=== PATIENT | female | born 1990 | race Caucasian/White ===

== ENCOUNTER 2020-10-09 16:58 | Outpatient (CLI) | payer OTHER, SELFPAY | END 2020-10-09 16:59 | disposition home or self-care (01) | LOC: CHSIMG 17:04 | PROVIDERS: Visit Provider Podiatrist | DX: M20.11 Hallux valgus (acquired), right foot (principal); Z53.8 Procedure and treatment not carried out for other reasons | CPT/HCPCS: 99199 ==

== ENCOUNTER 2020-10-31 16:32 | Outpatient (CLI) | payer OTHER, SELFPAY ==
--- NOTE | ~2020-10-31 | XR_ITS ---
XR foot LT min 3V DATE: 10/31/2020 17:08 INDICATION: Bilateral dorsal foot pain for one year TECHNIQUE: 4 views COMPARISON: None FINDINGS: There is hallux valgus and bunion deformity. There is mild osteoarthritis at the first metatarsophalangeal joint. No fracture, dislocation, periosteal reaction or bone destruction. IMPRESSION: Hallux valgus and bunion deformity Mild osteoarthritis at first metatarsophalangeal joint Reviewed, dictated and finalized at location A.
--- NOTE | ~2020-10-31 | XR_ITS ---
XR foot RT min 3V DATE: 10/31/2020 17:08 INDICATION: Right foot dorsal pain for one year TECHNIQUE: 4 views COMPARISON: None FINDINGS: There is hallux valgus and bunion deformity. Mild osteoarthritis at the first metatarsophalangeal joint. There is no fracture or dislocation, noemi osteal reaction or bone destruction. IMPRESSION: Hallux valgus and bunion deformity Mild osteoarthritis at first metatarsophalangeal joint Reviewed, dictated and finalized at location A.
== END 2020-10-31 16:33 | disposition home or self-care (01) ==
LOC: CHSIMG 16:37
PROVIDERS: Visit Provider Podiatrist
DX: M20.11 Hallux valgus (acquired), right foot (principal)
CPT/HCPCS: 73630

== ENCOUNTER 2021-10-18 11:01 | Emergency (ER) | payer OTHER, SELFPAY ==
[2021-10-18] VITALS (9 sets, daily range): BP systolic 105–139; BP diastolic 68–86; PULSE 70–88; RESP 20; TEMP 36.2; O2SAT 98–100
--- NOTE | ~2021-10-18 | CT_ITS ---
EXAMINATION: CT abdomen pelvis wo con DATE: 10/18/2021 11:58 INDICATION: Mid to lower abdominal pain, nausea and vomiting. TECHNIQUE: Computed tomography (CT) of the abdomen and pelvis was performed without intravenous contr ast. Automated exposure control and iterative reconstruction technique were employed. The dose-length product was 348.58 mGy-cm. COMPARISON: None FINDINGS: Lung bases are clear. Heart size is normal. No pericardial or pleural effusion. Subtle gradient of de pendently layering sludge within the otherwise normal-appearing gallbladder. Liver, spleen, pancreas and bilateral adrenal glands are normal. Kidneys and ureters are normal with no urolithiasis, hydrour eteronephrosis or perinephric/ureteral stranding. Partially decompressed bladder is normal. T-shaped IUD in expected position within the anteverted uterus. Bilateral adnexa are unremarkable. There are c ouple diverticula at the cecum without adjacent inflammatory change to suggest diverticulitis. No bow el obstruction. Multiple elongated peripherally calcified appendicoliths within the long appendix whi ch measures up to 12 mm in diameter with some wall thickening which measures approximately 2-3 mm harlan rounding the distalmost appendicolith which does raise some suspicion for acute appendicitis. There i s some diffuse haziness to the mesenteric fat but without focally more prominent inflammatory strandi ng surrounding the appendix to more specifically suggest acute appendicitis. No bowel obstruction. Sm all amount of likely physiologic free fluid in the pelvis. No free intraperitoneal gas. No pathologic ally enlarged abdominal or pelvic lymphadenopathy. Bones are unremarkable. IMPRESSION: 1. Mild wall thickening along the long appendix which contains several calcified appendicoliths, whic h is suspicious but not definitive for acute appendicitis. 2. IUD in expected position. Reviewed, dictated and finalized at location B. IMPRESSION: 1. Mild wall thickening along the long appendix which contains several calcifie d appendicoliths, which is suspicious but not definitive for acute appendicitis . 2. IUD in expected position.
--- NOTE | 2021-10-18 11:20 | ECG_ITS ---
Measurements Intervals [place] Rate: 59 P: 49 NE: 119 QRS: 92 QRSD: 96 T: 75 QT: 431 QTc: 429 Interpretive Statements SINUS BRADYCARDIA WITH SHORT NE INTERVAL BORDERLINE RIGHT AXIS DEVIATION [QRS AXIS > 90] BORDERLINE ECG NO PREVIOUS ECG AVAILABLE FOR COMPARISON Electronically Signed On 10-18-2021 17:37:20 CDT by Mamadou Bustos M.D.
[2021-10-18 11:30] LABS: Add Urine Microscopic? YES; Appearance Urine Clear (Clear); Bilirubin Urine Negative (Negative); Blood Urine Negative (Negative); Color Urine Light Yellow (Yellow); Glucose Urine UA Negative (Negative); Ketones Urine Negative (Negative); Leukocyte Esterase Ur 1+ (Negative); Nitrate Urine Negative (Negative); Protein Urine Negative (Negative); Specific Grav Ur 1.025 (1.010-1.020); Urobilinogen Urine 0.2 mg/dL (0.2-1.0)
[2021-10-18 11:36] LABS: Bacteria Urine 2+ /hpf; Pregnancy On Board Control Positive; RBC Urine None seen /hpf (0-2); Squamous Epithelial Cell Urine Moderate /hpf (Few); Urine Pregnancy Test Negative
[2021-10-18] MEDS: SODIUM CHLORIDE 0.9% IV 1,000 ML 999 ML IV CONT (11:37)
[2021-10-18] MEDS: ONDANSETRON INJ 4 MG/2 ML VIAL IV PUSH (11:38)
[2021-10-18] MEDS: KETOROLAC 30 MG/ML VIAL (*BKC) IV PUSH (11:38)
[2021-10-18 11:39] LABS: Basophils Absolute Auto 0.05 K/mm3 (0.00-0.10); Basophils Percent Auto 0.3 % (0.0-1.0); Eosinophils Absolute Auto 0.15 K/mm3 (0.02-0.50); Hematocrit 38.7 % (35.0-49.0); Hemoglobin 13.4 g/dL (12.0-15.0); Immature Granulocyte Absolute 0.06 K/mm3 (0.00-0.00); Immature Granulocyte Percent A 0.4 % (0.0-0.0); Lymphocytes Absolute Auto 1.56 K/mm3 (1.10-4.50); Lymphocytes Percent Auto 10.5 % (18.0-42.0); Mean Corpuscular HGB Conc 34.6 g/dL (32.0-36.0); Mean Corpuscular Hemoglobin 31.6 pg (27.0-31.0); Mean Corpuscular Volume 91.3 fL (78.0-102.0); Mean Platelet Volume 9.9 fl (9.2-11.8); Monocytes Percent Auto 5.4 % (2.0-11.0); Neutrophils Absolute Auto 12.2 K/mm3 (1.7-7.2); Neutrophils Percent Auto 82.4 % (50.0-70.0); Platelet Count Result 225 K/mm3 (150-420); Red Blood Count 4.24 M/mm3 (4.20-5.40); Red Cell Distribution Width 12.2 % (11.6-14.4); White Blood Count 14.8 K/mm3 (4.8-10.8)
--- NOTE | 2021-10-18 11:51 | ED.ABDPAIN ---
HPI - Abdominal Pain General Chief Complaint: Abdominal Pain Stated Complaint: ABDOMINAL PAIN Source: patient Mode of arrival: ambulatory Limitations: no limitations History of Present Illness HPI narrative: this is a 30-year-old female presents with some pain periumbilical radiating into her lower abdomen mid suprapubic and right and lower quadrants with no flank pain no fever chills pain started earlier this morning at around 6 or 7 this morning patient rates her pain about a 6/10 with no hematuria does have some nausea with no vomiting no chest pain or shortness of breath. MD elicited complaint: abdominal pain Pertinent past history: none Onset (ago): hour(s) Pain Consistency: constant Location: periumbilical Severity: moderate Pain scale (0-10): 6 Radiation: suprapubic, L flank and R flank Associated symptoms: nausea and dysuria Related Data Home Medications Medication Instructions Recorded Confirmed naproxen 375 mg tablet 1 tablet PO BID 10/18/21 10/18/21 sumatriptan succinate 25 mg tablet 1 tablet PO DAILY PRN Migraine 10/18/21 10/18/21 Headache Allergies Allergy/AdvReac Type Severity Reaction Status Date / Time No Known Allergies Allergy Verified 10/18/21 11:20 Review of Systems Review of Systems: All systems reviewed & are unremarkable except as noted in HPI and below PMFSH Past Medical History Medical History (Updated 10/18/21 @ 12:41 by Da Alexis MD) Patient denies medical problems Exam Const: General: healthy appearing, no acute distress and alert Nutritional Appearance: well nourished Limitations: no limitations HENMT: Head: normal to inspection Eyes: Conjunctivae: conjunctivae normal Direct Ophthalmoscopy: no photophobia Neck: Neck: normal visual inspection, no lymphadenopathy and no meningeal signs Chest: Chest palpation & inspection: normal inspection of the chest Resp: Effort & Inspection: normal respiratory effort Auscultation: clear to auscultation bilaterally Cardio: Rate: regular rate Rhythm: regular rhythm GI: GI Palp: Yes Soft to palpation and Yes Tenderness to palpation present (GI) ( lower abdomen) Urinary Catheter: Urinary Catheter: patent and draining Skin: General skin exam: normal color Wounds: no wounds Neuro: General: patient oriented x3 and moves all extremities Cranial nerves: Yes Nystagmus not present Speech: normal speech Gait exam (Neuro): Normal gait present Extrem: General: normal to inspection Psych: Mental Status: mental status grossly normal Course Course Emergency Course: patient received 30mg IV Toradol as well as IV fluids and CT scan and blood work as well as urinalysis reviewed with patient and family. CT scan reviewed with patient and family which shows acute appendicitis, spoke with some [facility] surgeon which will be accepting the patient. Patient received a dose of 4mg of morphine and a dose of 3.75 IV Zosyn. Talk to surgery and they are able to get the patient in promptly and patient stable for transfer by private vehicle. Vital Signs Vital signs: Vital Signs Temperature 36.2 C L 10/18/21 11:21 Pulse Rate 72 10/18/21 11:21 Respiratory Rate 20 10/18/21 11:21 Blood Pressure 132/86 10/18/21 11:21 Pulse Oximetry 100 10/18/21 11:21 Oxygen Delivery Room Air 10/18/21 11:21 Temperature 36.2 C L 10/18/21 11:21 Pulse Rate 72 10/18/21 11:21 Respiratory Rate 20 10/18/21 11:21 Blood Pressure 132/86 10/18/21 11:21 Pulse Oximetry 100 10/18/21 11:21 Oxygen Delivery Room Air 10/18/21 11:21 Transfer Transfered to: [facility] Transportation: Other ( Private vehicle) MDM - Abdominal Pain Lab Data Result diagrams: 10/18/21 11:35 10/18/21 11:35 Labs: Lab Results 10/18/21 10/18/21 10/18/21 Range/Units 11:20 11:35 11:35 WBC 14.8 H (4.8-10.8) K/mm3 RBC 4.24 (4.20-5.40) M/mm3 Hgb 13.4 (12.0-15.0) g/dL Hct 38.7 (35.0-49.0
[2021-10-18 12:00] LABS: Alanine Aminotransferase 20 U/L (14-59); Albumin Level 4.3 g/dL (3.4-5.0); Alkaline Phosphatase 73 U/L (46-116); Anion Gap 8 mmol/L (8-16); Aspartate Amino Transferase 20 U/L (15-37); Blood Urea Nitrogen 12 mg/dL (7-18); Calcium 9.5 mg/dL (8.5-10.1); Carbon Dioxide 26 mmol/L (21-32); Chloride 100 mmol/L (98-108); Estimated CRCL calculation 83 ml/min; Estimated Glomerular Filt Rate > 60; Glucose 94 mg/dL (70-99); Lipase 56 U/L (73-393); Osmolality Calculated 277 mOsm/kg (285-295); Potassium 3.6 mmol/L (3.5-5.1); Sodium 134 mmol/L (136-145); Total Protein 7.5 g/dL (6.4-8.2); Troponin I 4.8 ng/L (0.00-60.4)
[2021-10-18 12:02] LABS: CRP < 0.2 mg/dL (0.0-0.9)
[2021-10-18 12:22] LABS: Lactic Acid Reflex 0.9 mmol/L (0.4-2.0)
[2021-10-18] MEDS: MORPHINE SULFATE (*CRX) 4 MG/ML INJ IV PUSH (12:33)
--- NOTE | 2021-10-18 13:11 | PC.NURSE ---
pt refused to go to [facility] pt requesting now to go to [facility] notified
[2021-10-18 13:13] LABS: Partial Thromboplastin Time 29.2 SEC (23.90-30.70); Prothrombin Time 10.5 Seconds (9.64-11.0)
[2021-10-18 13:33] LABS: SARS-CoV-2 Ag Negative (Negative)
--- NOTE | 2021-10-18 15:26 | PC.NURSE ---
[address] [facility] TRANSFER LINE CALLED 1500 RETURNED CALL AND THEY HAVE NO BED IN THEIR UMBRELLA TO TAKE PT 1520 PT NOW WANTS TO CALL [facility] CALL PLACED AND WAITING FOR CALL BACK
--- NOTE | 2021-10-18 16:06 | PC.NURSE ---
3517 [facility] CALLED BACK AND ACCEPTED PT DR CASTRO SPOKE WITH DR ACHARYA WE ARE AWAITING ROOM ASSIGNMENT
== END 2021-10-18 16:28 | disposition short-term general hospital (02) ==
PROVIDERS: Emergency Provider Emergency Medicine
DX: K35.80 Unspecified acute appendicitis (principal); Z20.822 Contact with and (suspected) exposure to COVID-19
CPT/HCPCS: 36415; 74176; 80053; 81001; 81025; 83605; 83690; 84484; 85025; 85610; 85730; 86140; 87426; 93005; 96361; 96365; 96375; 99285; C9803; J1885; J2270; J2405; J2543; J7030

== ENCOUNTER 2023-11-17 14:41 | Outpatient (CLI) | payer OTHER, SELFPAY ==
--- NOTE | ~2023-11-17 | US_ITS ---
US pelvic complete w TV Ordering provider: Rocio Wright MD History: . N93.9 - Abnormal uterine and vaginal bleeding, unspecified . Comparison: None. Technique: Transabdominal and endovaginal ultrasound of the pelvis (Doppler ultrasound interrogation techniques used as needed for this exam.) FINDINGS: CERVIX: Normal. UTERUS: Measures 8x 4.7x 3.1m in length which is within normal limits and is anteverted. No myometri al masses. ENDOMETRIUM: Normal in thickness measuring 4.3m. IUD is seen in the endometrial cavity. No endometria l masses, cysts or fluid. CUL DE SAC: Minimal free fluid. RIGHT OVARY: Normal in size measuring 3.8x2.2x 2.1 cm. Cystic areas seen in the mid ovary with periph eral increased vascularity with possible minimal decidual reaction which may indicate ectopic pregnan cy. Clinical correlation and lab correlation advised. LEFT OVARY: Normal in size measuring 2.5x2.1x1.9 cm.Normal echotexture Doppler vascular flow present. ADNEXA: Normal. No mass. IMPRESSION: Possible right ectopic . Clinical and lab correlation advised. Otherwise, normal pelvic ultr asound. the nurse of Dr. Rocio Wright was notified with the result of the patient at 3:32 PM on November 17, 2023 Reviewed, dictated and finalized at location A. IMPRESSION: Possible right ectopic . Clinical and lab correlation advised. Otherwi se, normal pelvic ultrasound. the nurse of Dr. Rocio Wright was notified with the result of the patient at 3:32 PM on November 17, 2023
== END 2023-11-17 14:42 | disposition home or self-care (01) ==
PROVIDERS: Visit Provider Obstetrics & Gynecology
DX: Z30.431 Encounter for routine checking of intrauterine contraceptive device (principal); R10.2 Pelvic and perineal pain; N93.9 Abnormal uterine and vaginal bleeding, unspecified
CPT/HCPCS: 36415; 76830; 76856; 84702

== ENCOUNTER 2023-11-18 09:03 | Outpatient (CLI) | payer OTHER, SELFPAY ==
[2023-11-18 09:23] LABS: Basophils Absolute Auto 0.06 K/mm3 (0.00-0.10); Basophils Percent Auto 0.7 % (0.0-1.0); Eosinophils Absolute Auto 0.42 K/mm3 (0.02-0.50); Eosinophils Percent Auto 5.1 % (1.0-6.0); Hematocrit 40.6 % (35.0-49.0); Hemoglobin 13.7 g/dL (12.0-15.0); Immature Granulocyte Absolute 0.02 K/mm3 (0.00-0.00); Immature Granulocyte Percent A 0.2 % (0.0-0.0); Lymphocytes Absolute Auto 1.56 K/mm3 (1.10-4.50); Lymphocytes Percent Auto 18.8 % (18.0-42.0); Mean Corpuscular HGB Conc 33.7 g/dL (32-36); Mean Corpuscular Hemoglobin 31.2 pg (27.0-31.0); Mean Corpuscular Volume 92.5 fL (78.0-102.0); Mean Platelet Volume 9.6 fl (9.2-11.8); Monocytes Percent Auto 7.2 % (2.0-11.0); Neutrophils Absolute Auto 5.65 K/mm3 (1.70-7.20); Platelet Count Result 221 K/mm3 (150-420); Red Blood Count 4.39 M/mm3 (4.20-5.40); White Blood Count 8.3 K/mm3 (4.8-10.8)
[2023-11-18 10:03] LABS: Alanine Aminotransferase 17 U/L (14-59); Albumin Level 4.1 g/dL (3.4-5.0); Alkaline Phosphatase 75 U/L (46-116); Anion Gap 10 mmol/L (4-12); Aspartate Amino Transferase 15 U/L (15-37); Bilirubin,Total 1.4 mg/dL (0.00-1.00); Blood Urea Nitrogen 7 mg/dL (7-18); Calcium 9.2 mg/dL (8.5-10.1); Carbon Dioxide 27 mmol/L (21-32); Chloride 99 mmol/L (98-108); Estimated Glomerular Filt Rate > 60; Glucose 83 mg/dL (70-99); Osmolality Calculated 279 mOsm/kg (285-295); Sodium 136 mmol/L (136-145); Total Protein 7.3 g/dL (6.4-8.2)
== END 2023-11-18 09:04 | disposition home or self-care (01) ==
LOC: CHSLAB 09:06
PROVIDERS: PCP Obstetrics & Gynecology; Visit Provider Obstetrics & Gynecology
DX: O00.90 Unspecified ectopic pregnancy without intrauterine pregnancy (principal)
CPT/HCPCS: 36415; 80053; 84702; 85025; 86850; 86900; 86901

== ENCOUNTER 2023-11-21 15:48 | Outpatient (CLI) | payer OTHER, SELFPAY | END 2023-11-21 15:49 | disposition home or self-care (01) | LOC: CHSLAB 15:49 | PROVIDERS: PCP Obstetrics & Gynecology; Visit Provider Obstetrics & Gynecology | DX: O00.90 Unspecified ectopic pregnancy without intrauterine pregnancy (principal) | CPT/HCPCS: 36415; 84702 ==

== ENCOUNTER 2023-11-24 13:53 | Outpatient (CLI) | payer OTHER, SELFPAY ==
[2023-11-24 14:08] LABS: Hematocrit 39.5 % (35.0-49.0); Hemoglobin 13.3 g/dL (12.0-15.0); Mean Corpuscular HGB Conc 33.7 g/dL (32-36); Mean Corpuscular Hemoglobin 31.3 pg (27.0-31.0); Mean Corpuscular Volume 92.9 fL (78.0-102.0); Mean Platelet Volume 9.3 fl (9.2-11.8); Platelet Count Result 194 K/mm3 (150-420); Red Blood Count 4.25 M/mm3 (4.20-5.40); Red Cell Distribution Width 13.8 % (11.6-14.4); White Blood Count 5.7 K/mm3 (4.8-10.8)
[2023-11-24 15:04] LABS: Alanine Aminotransferase 32 U/L (14-59); Albumin Level 3.9 g/dL (3.4-5.0); Alkaline Phosphatase 67 U/L (46-116); Anion Gap 8 mmol/L (4-12); Aspartate Amino Transferase 17 U/L (15-37); Bilirubin,Total 2.1 mg/dL (0.00-1.00); Blood Urea Nitrogen 11 mg/dL (7-18); Carbon Dioxide 28 mmol/L (21-32); Chloride 102 mmol/L (98-108); Estimated Glomerular Filt Rate > 60; Glucose 110 mg/dL (70-99); Osmolality Calculated 286 mOsm/kg (285-295); Potassium 3.8 mmol/L (3.5-5.1); Sodium 138 mmol/L (136-145); Total Protein 6.9 g/dL (6.4-8.2)
== END 2023-11-24 13:54 | disposition home or self-care (01) ==
LOC: CHSLAB 13:58
PROVIDERS: Visit Provider Obstetrics & Gynecology
DX: O00.90 Unspecified ectopic pregnancy without intrauterine pregnancy (principal)
CPT/HCPCS: 36415; 80053; 84702; 85027

== ENCOUNTER 2023-12-01 12:42 | Outpatient (CLI) | payer OTHER, SELFPAY | END 2023-12-01 12:43 | disposition home or self-care (01) | LOC: CHSLAB 12:47 | PROVIDERS: Visit Provider Obstetrics & Gynecology | DX: O00.90 Unspecified ectopic pregnancy without intrauterine pregnancy (principal) | CPT/HCPCS: 36415; 84702 ==

== ENCOUNTER 2023-12-03 15:07 | Outpatient (CLI) | payer OTHER, SELFPAY ==
--- NOTE | ~2023-12-03 | US_ITS ---
EXAMINATION: US pelvic complete w TV DATE: 12/03/2023 15:41 INDICATION: Right tubal TECHNIQUE: Multiple transabdominal and endovaginal sonographic images of the pelvis were obtained. COMPARISON: None. FINDINGS: The uterus measures 10.5 x 4.6 x 3.8 cm. Linear echogenic and shadowing T-shaped IUD in expected posi tion within the endometrial canal. The IUD obscures the margins of the endometrial complex which does not appear thickened. No evident intrauterine gestational sac. The right ovary measures 3.7 x 3.4 x 3.4 cm. The left ovary measures 4.2 x 2.9 x 3.2 cm. Simple appearing anechoic cysts/follicles in both ovaries measuring 2.7 cm on the left and 2.1 cm on the right. Along side but appearing separate from the right ovary is a targetoid-appearing complex structure measuring 2.1 x 1.7 x 1.6 cm which is thi n peripherally hyperechoic rim with increased vascular flow on color Doppler surrounding a 9 mm mixed anechoic and hypoechoic complex cystic space with the intervening thicker hypoechoic region which is suspicious for a tubal ectopic . Normal vascular flow with arterial waveforms identified at both ovaries. There is no free fluid in the pelvis. IMPRESSION: 1. 2.1 cm complex centrally cystic lesion along side the right ovary suspicious for tubal ectopic pre gnancy. 2. IUD in expected position within the endometrial canal with no evident intrauterine gestational sac . Reviewed, dictated and finalized at location A. IMPRESSION: 1. 2.1 cm complex centrally cystic lesion along side the right ovary suspicious for tubal ectopic . 2. IUD in expected position within the endometrial canal with no evident intrau terine gestational sac.
== END 2023-12-03 15:08 | disposition home or self-care (01) ==
PROVIDERS: PCP Obstetrics & Gynecology; Visit Provider Obstetrics & Gynecology
DX: O00.101 Right tubal pregnancy without intrauterine pregnancy (principal); Z97.5 Presence of (intrauterine) contraceptive device
CPT/HCPCS: 76830; 76856

== ENCOUNTER 2023-12-08 13:15 | Outpatient (CLI) | payer OTHER, SELFPAY ==
[2023-12-08 13:31] LABS: Hematocrit 42.4 % (35.0-49.0); Hemoglobin 14.3 g/dL (12.0-15.0); Mean Corpuscular HGB Conc 33.7 g/dL (32-36); Mean Corpuscular Hemoglobin 31.8 pg (27.0-31.0); Mean Corpuscular Volume 94.2 fL (78.0-102.0); Mean Platelet Volume 9.3 fl (9.2-11.8); Platelet Count Result 319 K/mm3 (150-420); Red Cell Distribution Width 13.7 % (11.6-14.4)
[2023-12-08 14:10] LABS: Alanine Aminotransferase 16 U/L (14-59); Alkaline Phosphatase 77 U/L (46-116); Anion Gap 9 mmol/L (4-12); Aspartate Amino Transferase 16 U/L (15-37); Bilirubin,Total 2.1 mg/dL (0.00-1.00); Blood Urea Nitrogen 9 mg/dL (7-18); Calcium 9.2 mg/dL (8.5-10.1); Carbon Dioxide 27 mmol/L (21-32); Chloride 102 mmol/L (98-108); Estimated Glomerular Filt Rate > 60; Glucose 110 mg/dL (70-99); Osmolality Calculated 285 mOsm/kg (285-295); Potassium 4.1 mmol/L (3.5-5.1); Sodium 138 mmol/L (136-145)
== END 2023-12-08 13:16 | disposition home or self-care (01) ==
LOC: CHSLAB 13:18
PROVIDERS: Visit Provider Obstetrics & Gynecology
DX: O00.90 Unspecified ectopic pregnancy without intrauterine pregnancy (principal)
CPT/HCPCS: 36415; 80053; 84702; 85027

== ENCOUNTER 2023-12-15 13:42 | Outpatient (CLI) | payer OTHER, SELFPAY | END 2023-12-15 13:43 | disposition home or self-care (01) | PROVIDERS: Visit Provider Obstetrics & Gynecology | DX: O00.101 Right tubal pregnancy without intrauterine pregnancy (principal) | CPT/HCPCS: 36415; 84702 ==

== ENCOUNTER 2024-07-26 18:53 | Outpatient (CLI) | payer OTHER, SELFPAY ==
--- OUTSIDE RECORDS SUMMARY | 2024-07-26 19:32 | XMS_ITS | Referral Summary ---
Author Organization [facility] Address [address] [place] [address] Care Team Providers Care Surgical [employer]ps Fabricator Name Role Phone Amelia Wyman MD Unavailable Amanda Krishna MD Primary Care Provider Encounters Date Type Department Care Team Description 05/06/2024 Orders Only [facility] [address] [place] [address] Unknown, Notinfile from Last 3 Months Allergies No known active allergies Medications SUMAtriptan (IMITREX) 25 mg tabletIndicatio ns:Migraine without aura and without status migrainosus, not intractable Take 1 tablet (25 mg total) by mouth once as needed for migraine for up to 1 dose 9 tablet 3 9 Active docusate sodium (COLACE) 100 mg capsule Take 1 capsule (100 mg total) by mouth 2 (two) times a day as needed for constipation 60 capsule 9 Active levonorgestrel (MIRENA) IUD 9 Active tiZANidine (ZANAFLEX) 4 mg tablet Take 1 tablet (4 mg total) by mouth nightly at bedtime. 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 Continue current treatment regimen. imitrex renewed Skin papules, generalized 05/15/2017 Assessment & Plan (05/15/2017 8:11 AM FORMING PROCESS LINE WORKER): Small skin tags, papules - reassurance given. No intervention needed Resolved Problems Problem Noted Date Diagnosed Date Resolved Date Depression 10/02/2013 05/15/2017 Overview (08/21/2016): DEPRESSIVE DISORDER NEC Immunizations Immunization Administration Dates Next Due Influenza, Quadrivalent, Spl it, Intramuscular 12/25/2015 Influenza, Unspecified 05/14/2017(Deferred: [place] Refused) Social History Tobacco Use Types Packs/Day Years Used Date Smoking Tobacco: Former Cigarettes Q uit: 2017 Smokeless Tobacco: Never Tobacco Cessation:Counseling Given: Not Answered Comments:Smoking History Packs/day: 1 Packs Alcohol Use Standard Drinks/Week Comments Yes 0 (1 standard drink = 0.6 oz pur e alcohol) PHQ-2 Answer Date Recorded PHQ-2 Score 0 01/08/2019 Comments Unknown Sex and Gender Information Value Date Recorded Sex Assigned at Not on file Legal Sex Female 7:06 PM FORMING PROCESS LINE WORKER Gender Identity Not on file Sexual Orientation Straight 05/26/2019 1: 44 PM FORMING PROCESS LINE WORKER Last Filed Vital Signs Vital Sign Reading Time Taken Comments Blood Pressure 102/60 04/21/2024 3:09 PM FORMING PROCESS LINE WORKER Pulse 67 04/21/2024 3:09 PM FORMING PROCESS LINE WORKER Temperature 36.9 C (98.4 F) 04/21/2024 3:09 PM FORMING PROCESS LINE WORKER Respiratory Rate 18 04/21/2024 3:09 PM FORMING PROCESS LINE WORKER Oxygen Saturation 99% 04/21/2024 3:09 PM FORMING PROCESS LINE WORKER Inhaled Oxygen Concentration - - Weight 72.6 kg (160 lb) 04/21/2024 3:09 PM FORMING PROCESS LINE WORKER Height 175.3 cm (5' 9 ) 04/21/2024 3:09 PM FORMING PROCESS LINE WORKER Body Mass Index 23.63 04/21/2024 3:09 PM FORMING PROCESS LINE WORKER Plan of Treatment Not on file Procedures Procedure Name Priority Date/Time Associated Diagnosis Comments SURGICAL PATHOLOGY Routine 05/06/2024 5: 00 PM FORMING PROCESS LINE WORKER from Last 3 Months Results * Surgical pathology (05/06/2024 5:00 PM FORMING PROCESS LINE WORKER) Skin, shave biopsy 05/06/2024 5:00 PM FORMING PROCESS LINE WORKER 05/13/2024 9:01 AM FORMING PROCESS LINE WORKER Narrative 05/14/2024 1:12 PM FORMING PROCESS LINE WORKER EPIC results best viewed via link to PDF [facility] [address] [place] [address], [address], [place] [address] [email or web address] Note to Patients: This report may contain a detailed description of human tissue sent by a health care provider to the laboratory for pathologic evaluation. The content of this report is essential for diagnosis and may provide important critical findings. This information may be unfamiliar to patients to review without a medical professional present. It is advised that the patient review this report in the presence of a health care provider who can answer questions and explain the details. FINAL REPORT Patient Information: PATIENT NAME: NALLELY SANDRA SEX: F : 1990 (Age: 33) Specimen Information: COLLECTED: 05/06/2024 RECEIVED: 05/13/2024 REPORTED: 05/14/2024 Submitting Physician Information: Jackie Hauser, [facility], [address] [place], [place] [id number], DERMATOPATHOLOGY REPORT RESULTS DIAGNOSIS: SKIN, SUPERIOR THORACIC SPINE, SHAVE BIOPSY: DERMAL MELANOCYTIC NEVUS exr/ajrr By this signature, I attest that the above diagnosis is based upon my personal examination of the slides(and/or other material indicated in the diagnosis). Puma Donald M.D. Report Electronically Reviewed and Signed Out By Puma Donald M.D. 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 (D22.9) GROSS DESCRIPTION: Received in a formalin-containing bottle is a superficial fragment of brown,dome-shaped and hair-bearing skin measuring 0.9 by 0.8 by 0.2 cm. The surgical margin is inked blue. The specimen is sectioned into 3 pieces and submitted entirely in a single cassette. Due to shrinkage, measurements may be different than those at time of procedure. cr/anc ICD-9 A; ZSD.808 Clerical Data A; 83487 The characteristics of special, immunohistochemical, and immunofluorescence stains and in-situ hybridization tests performed by the [facility] were deemed acceptable in ongoing quality associate measures and in compliance with regulations drawn from the Clinical Laboratory Improvement Act fj3699 (CLIA '88). Control reactions for all stains performed were deemed adequate and appropriate by a pathologist prior to evaluation of patient tissue. Some diagnoses were rendered with the assistance of laboratory-developed tests utilizing analyte-specific reagents; the performance characteristic of these tests were determined by [facility] and are not cleared or approved by the [place] Food an Drug administration. Laboratory developed test may only be performed in a facility that is certified by the [facility] as a high-complexity laboratory under CLIA '88. These tests are used for clinical purposes and are not investigational. us Notinfile Unknown LAB PATHOLOGY ORDERABLES Final Result from Last 3 Months Insurance [facility] [employer]O Address: [address] [address] [place] [address] [facility] [employer] Address: [address] [address] [place] [address] Care Teams Surgical Forceps Fabricator Relationship Specialty Start Date End Date Amanda Krishna MD [address] [place] [address] PCP - General Family Medicine 04/21/24 Amelia Wyman MD [facility] 06/24/18
--- OUTSIDE RECORDS SUMMARY | 2024-07-26 19:32 | XMS_ITS | Data Portability ---
Author Organization [place] - [facility], Crystal Guzman Address [address] [place] [id number] Assessment Encounter Date Assessment Date Assessment LastModified by Organization Details LastModified Time 03/24/2024 03/24/2024 Assessment and Plan Assessment: patient tolerated session well Plan: My area of focus will be on what the patient presented with. Recommendatio n: 4 of 8 massage Follow Up Visit: 4 weeks [email or web address] Not available 03/25/2024 09:08:43 04/21/2024 04/21/2024 Assessment and Plan Assessment: patient tolerated session well Plan: My area of focus will be on what the patient presented with. Recommendatio n: 5 of 8 massage Follow Up Visit: 4 weeks [email or web address] Not available 04/21/2024 18:14:49 06/01/2024 06/01/2024 Assessment and Plan Assessment: patient tolerated session well Plan: My area of focus will be on what the patient presented with. Recommendatio n: 6 of 8 massage Follow Up Visit: 4 weeks Not available 06/02/2024 09:04:53 06/29/2024 06/29/2024 Assessment and Plan Assessment: patient tolerated session well Plan: My area of focus will be on what the patient presented with. Recommendatio n: 7 of 8 massage Follow Up Visit: 4 weeks Not available 06/29/2024 18:15:13 Plan of Treatment Reminders Order Date Submit Date Provider Last Modified By Organization Details Last Modified Time Details Appointments InPerson; Massage (60 min) 2024 03:30P M Rubi Lynch [place] Not available Not available Not available Lab None recorded. Referral None recorded. Procedures None recorded. Surgeries None recorded. Imaging None recorded. Medication Orders sumatript an 25 mg tablet 2023 024 [facility], [address] [place] [address], [id number], 04/12/2024 17:49:17 escitalop carolyn 5 mg tablet 2023 024 [facility], [address] [place] [address], [id number], 04/12/2024 17:49:18 escitalop carolyn 10 mg tablet 2023 024 [facility], [address] [place] [address], [id number], 04/12/2024 17:49:16 Patient TargetsNo targets recorded. Patient Instructions Encounter Date Encounter Id Patient Instructions Last Modified By Organization Details Last Modified Time 04/12/2024 [id number] vertigo: exercises ttrost Not available 04/12/2024 18:12:47 Reason for Referral None Reported. Problems Name Problem SNOMED Code Status Onset Date Resolution Date Notes Provider Name and Address Organization Details Recorded Time Bunion 271072545 Active 2022 Dannielle Gonzalez NP [address], [place], [address] , [place] [facility] 3 00:07:58 Migraine 20667863 Active 2022 Dannielle Gonzalez NP [address], [place], [address] , [place] [facility] 3 00:08:09 Impacted cerumen 32631727 Active 2022 Dannielle Gonzalez NP [address], [place], [address] , [place] [facility] 3 00:08:36 Mixed anxiety and depressiv e disorder 139833792 Active 2022 Dannielle Gonzalez NP [address], [place], [address] , [place] [facility] 3 00:09:24 Chronic back pain 327802542 Active 2022 Dannielle Gonzalez NP [address], [place], [address] , [place] [facility] 3 00:09:37 Thoracic back pain 087863816 Active 2022 Rubi Lynch [place] [address], [place], [address] , [place] - [facility] 3 13:22:28 Bilateral wrist pain 188924297775 Active 2022 Rubi Lynch [address], [place], [address] , [place] - [facility] 3 13:23:03 Chronic thoracic back pain 774035101522 103 Active 2023 Rubi Lynch [address], [place], [address] , [place] - [facility] 4 08:35:36 Pain of bilateral forearms 341758316933 Active 2023 Rubi Lynch [facility] [address], [place], [address] , [place] [facility] 4 08:36:06 Verruca vulgaris 68324439 Active 2020 Verruca vulgaris ; PROBABIL ITY: 0 SENSIT IVITY: 0.0 Conf irmation : Confirme d Annota tedDispl ay: Common wart Cla ssificat ion: [facility] e[facility]Tim e: 15:57:00 +00:00 Not Available [facility] 4 14:54:45 Ex-smoker 5045258 Active 2022 Ex-smoke r; PROBABIL ITY: 0 SENSIT IVITY: 0.0 Conf irmation : Confirme d Annota tedDispl ay: Former smoker C lassific ation: [facility] eDateTim e: 16:00:00 +00:00 Not Available [facility] 4 14:55:03 Bilateral calf pain 161745279357 61390 Active 2023 Rubi Lynch [address], [place], [address] , [place] - [facility] 4 08:37:51 Smoker 05402226 Active Juanita Krishna MD [address], [place], [address] , [place] [facility] 18:11:03 Problem Notes None recorded. Procedures Surgical History Date Name Laterality Status Provider Name and Address Organization Details Recorded Time 06/29/19 29342: Massage completed Rubi Lynch, [address], [place], [address], [place] - [facility] 06/29/2024 18:14:44 06/01/19 [id number]: Massage completed Rubi Lynch, [address], [place], [address], [place] [facility] 06/02/2024 09:03:49 04/21/20 53038: Massage completed Rubi Lynch [address], [place], [address], [place] [facility] 04/21/2024 18:14:29 03/24/20 [id number]: Massage completed Rubi Lynch [address], [place], [address], [place] [facility] 03/25/2024 09:08:15 02/18/20 [id number]: Massage completed Rubi Lynch [address], [place], [address], [place] [facility] 02/19/2024 09:55:24 01/07/20 [id number]: Massage completed Rubi Lynch [address], [place], [address], [place] [facility] 01/08/2024 08:59:58 10/14/19 [id number]: Massage completed Rubi Lynch [address], [place], [address], [place] [facility] 10/15/2023 08:37:27 07/09/19 [id number]: Massage completed Rubi Lynch [address], [place], [address], [place] [facility] 07/10/2023 08:35:24 06/10/19 [id number]: Massage completed Rubi Lynch [address], [place], [address], [place] [facility] 06/10/2023 18:12:12 05/07/20 23 [id number]: Massage completed Rubi Lynch [place] [address], [place], [address], [place] [facility] 05/08/2023 13:22:12 10/19/19 22 Appendectomy completed Dannielle Gonzalez NP [address], [place], [address], [place] [facility] 04/30/2023 00:04:31 Imaging Results None recorded. Procedure Notes None recorded. Medical Equipment None Reported. Allergies No known drug allergies Medications Name Sig Start Date Stop Date Status Note LastModified by Organization Details LastModified Time levonorge strel 21 mcg/24 hr (up to 8 years) 52 mg intrauter ine device 2020 active StopType : Soft Stop Wilfrid gIdentif icationN umber: [id number] T otalRefi lls: 0 Consta ntIndica tor: Yes CSAS chedule: 0 active _status_ dt_tm: 06/27/2020 9:10:17 AM Not Available Not Available Not Available naproxen 375 mg tablet 1 tab(s) Oral bid,PRN: as needed for pain,Ins tr:with food. Do not take with other NSAIDS 10/11 completed PRNInstr uctions: as needed for pain Sto pType: Physicia n Stop Wilfrid gIdentif icationN umber: [id number] S cheduled PRN: Yes Tota lRefills : 0 Consta ntIndica tor: No CSASc hedule: 0 active _status_ dt_tm: 2 12:47:24 PM Not Available Not Available Not Available cetirizin e 10 mg tablet 1 tab(s) Oral daily 01/07 completed StopType : Physicia n Stop Wilfrid gIdentif icationN umber: [id number] S cheduled PRN: No Total Refills: 0 Consta ntIndica tor: Yes CSAS chedule: 0 active _status_ dt_tm: 2 2:04:45 PM Not Available Not Available Not Available sumatript an 25 mg tablet Take 1 tab PO at start of RUEDA. May repeat dose after 2hrs if needed. Max 2 doses in 24 hrs active Not Available Not Available No t Available Debrox 6.5 % ear drops 5 drops Ear-Both ; tid,x7 days 07/04 completed Duration : 7 Durati onUnit: day(s) S topType: Physicia n Stop Wilfrid gIdentif icationN umber: [id number] S cheduled PRN: No Total Refills: 0 Consta ntIndica tor: Yes CSAS chedule: 0 active _status_ dt_tm: 06/27/2020 9:33:20 AM Not Available Not Available Not Available metronida zole 500 mg tablet TAKE ONE TABLET BY MOUTH EVERY 12 HOURS FOR 7 DAYS DO NOT DRINK ALCOHOL WHEN TAKING THIS MEDICATI ON 04/12 completed Not Available Not Available Not Available ketorolac 30 mg/mL (1 mL) injection solution 09/13 completed StopType : Physicia n Stop Wilfrid Almanzar icationN umber: [id number] N extDoseD ate: 1:34:00 PM Const antIndic ator: No CSASc hedule: 0 active _status_ dt_tm: 1:34:56 PM Not Available Not Available Not Available salicylic acid 17 % topical liquid Apply to wart once per day for 4-6 weeks. 01/07 completed StopType : Physicia n Stop Wilfrid gIstaceytif icationN umber: [id number] T otalRefi lls: 0 Consta ntIndica tor: Yes CSAS chedule: 0 active _status_ dt_tm: 06/27/2020 9:34:03 AM Not Available Not Available Not Available Sudafed 30 mg tablet 2 tab(s) Oral q6 hrs,x7 days,PRN :as needed for cold symptoms 06/12 completed Duration : 7 Durati onUnit: days PRN Instruct ions: as needed for cold symptoms StopTyp e: Physicia n Stop Wilfrid gIdentif icationN umber: [id number] S cheduled PRN: Yes Tota lRefills : 0 Consta ntIndica tor: No CSASc hedule: 5 active _status_ dt_tm: 1/18/202 2 3:26:15 PM Not Available Not Available Not Available neomycin- polymyxin -hydrocor t 3.5 mg-10,000 unit/mL-1 % ear drops,je p active Not Available Not Available Not Available escitalop carolyn 10 mg tablet Take 1 tab PO daily. Take WITH 5mg tab for total daily dose of 15mg active Not Available Not Available No t Available escitalop carolyn 20 mg tablet Take 1 tablet every day by oral route for 90 days. 04/12 completed Not Available Not Available Not Available escitalop carolyn 5 mg tablet Take 1 tab PO daily. Take WITH 10mg tab for total daily dose of 15mg active Not Available Not Available No t Available loratadin e active Not Available Not Available Not Available Mirena 52 mg intraute rine device active Not Available Not Available No t Available Adacel (Tdap Adolesn/A dult)(PF) 2 Lf-(2.5-5 -3-5)-5 Lf/0.5 mL IM syringe 02/11 completed StopType : Physicia n Stop Wilfrid gIdentif icationN umber: [id number] N extDoseD ate: 3 3:03:00 PM Const antIndic ator: No CSASc hedule: 0 active _status_ dt_tm: 3 3:03:36 PM Not Available Not Available Not Available Allergy Relief (fluticas one) 50 mcg/actua tion nasal spray,je pension Ulysses 1 spray every day by intranas al route. active Not Available Not Available No t Available Vitals Date Recorded Body height Body mass index (BMI) Body weight Body temperature Oxygen saturation Oxygen saturation in Arterial blood by Pulse oximetry Heart rate Systolic blood pressure Diastolic blood pressure Provider Name and Address Organization Details Last Updated DateTime 4 175.26 cm 24.7 kg/m2 63763.9 3 g 98.2 [degF] 100 % 100 % 67 /min 117 mm[Hg] 76 mm[Hg] Shevell Herrera [place] - [facility] 4 17:25:48 Social History Question Answer Notes LastModified by Organizat ion Details LastModified Time Tobacco Smoking Status Current Some Day Smoker Chichi hugo, [place] - [facility] 04/30/2023 16:38:46 What Is Your Level Of Alcohol Consumption? Moderate [email or web address] Information not available 04/30/2023 What Is Your Level Of Caffeine Consumption? Heavy Information not available 04/30/2023 In The 14 Days Before Symptom Onset, Have You Had Close Contact With A Laboratory-con firmed COVID-19 While That Case Was Ill? No [email or web address] Information not available 08/25/2023 Have You Been To An Area Known To Be High Risk For COVID-19? No [email or web address] Information not available 08/25/2023 What Is Your Current Pack Years? 20-29packyears [email or web address] Information not available 04/30/2023 How Much Tobacco Do You Smoke? 1 PPW [email or web address] Information not available 04/30/2023 How Many Years Have You Smoked Tobacco? 15 [email or web address] Information not available 04/30/2023 Do You Or Have You Ever Used Any Other Forms Of Tobacco Or Nicotine? No [email or web address] Information not available 04/30/2023 Sex: Unknown Functional Status None recorded. Mental Status None recorded. Family History Relationship Description Onset Age of this Age Resolved Age Notes LastModified by Organization Details LastModified Time Maternal Aunt Malignant melanoma [email or web address] Not available 16:29:50 Father Malignant tumor of colon [email or web address] Not available 04/30 00:05:05 Father Malignant tumor of pancreas [email or web address] Not available 16:29:50 Maternal Grandmother Chronic obstructive pulmonary disease [email or web address] Not available 04/30 00:05:28 Maternal Grandmother Rheumatic arthritis [email or web address] Not available 16:29:50 Mother Neoplasm of brain [email or web address] Not available 16:29:50 Maternal Uncle Myocardial infarction [email or web address] Not available 04/18 00:06:22 Maternal Uncle Rheumatoid arthritis [email or web address] Not available 16:29:50 Paternal Uncle Malignant tumor of lung [email or web address] Not available 04/30 00:06:52 Notes:Aunt (M): Melanoma Fat her: Pancreatic cancer, Cancer of colon Grandfather(P): Grandmother (M): Rheumatoid arthritis, COPD, Smoker Grandmother (P): Mother: Brain tumor Uncle (M): Rheumatoid arthritis, Heart attack Uncle (P): CA - Lung cancer Medical History No medical history recorded. Gynecological HistoryNo gynecological history recorded. Obstetrics History GPAL:G 0 P 0 0 0 0 Immunizations Vaccine Type Date Status Note Provider Nam e and Address Organization Details Recorded Time Tdap 3 completed Dannielle Gonzalez NP [address], [place], [address], [place] [facility] 04/30/2023 00:12:46 influenza, unspecified formulation 3 completed Dannielle Gonzalez NP [address], [place], [address], [place] [facility] 04/30/2023 00:13:01 SARS-COV-2 (COVID-19) vaccine, UNSPECIFIED 1 completed Chichi hugo, [place] [facility] 04/30/2023 16:37:03 SARS-COV-2 (COVID-19) vaccine, UNSPECIFIED 1 completed Chichi Gandhi null, [place] [facility] 04/30/2023 16:37:30 Past Encounters Encounter ID Performer Location Encounter Start Date Encounter Closed Date Diagnosis/Indication Diagnosis SNOMED-CT Code Diagnosis ICD10 Code Diagnosis Note [id number] Juanita Krishna MD [address] [place] [address] 04/30/2023 16:28:48 04/30/2023 18:12:11 Mixed anxiety and depressive disorder 308758096 F41.8 Better but incomplete control. Increase lexapro from 10mg to 20mg and f/u 6-8 wks. Numbness of toe 63535636 8 R20.0 Etiology unclear, but exam consistent with peripheral rather than central cause. Discussed option of NCS/EMG, but unsure of utility and she declines. Will need further eval if symptoms progress. F/u in 6-8 wks, sooner if needed [id number] Rubi Lynch MT [address] [place] [address] 05/07/2023 17:07:33 05/08/2023 13:24:15 Thoracic back pain 223418006 M54.6 Bilateral wrist pain 519 9465153 7160502 M25.531 M25.676 [id number] JHOAN Reyna [address] [address] 06/10/2023 17:15:26 06/10/2023 18:13:01 Thoracic back pain 700755555 M54.6 [id number] [address] 07/09/2023 17:13:31 07/10/2023 08:37:11 Chronic thoracic back pain 5058360188 47358 M54.6 Pain of bi lateral forearms 2664216725 8683544 M79.631 M79.213 [id number] Juanita Krishna MD [address] [address] 08/25/2023 17:13:17 08/26/2023 10:50:47 Mixed anxiety and depressive disorder 143903989 F41.8 Change lexapro from 20mg to 15mg to aim for good symptoms control without side effects. Consider different SSRI if further changes needed Numbness of toe 61848692 8 R20.0 Migraine 04518879 G43.90 9 Stable. Try symptom diary if she can find an stanislav. Talk to massage therapy about home techniques . Fu in 2-4 months for physical [id number] JHOAN Reyna[address] [address] 10/14/2023 17:17:14 10/15/2023 08:38:22 Bilateral calf pain 8164654165 9722185 M79.661 M79.402 [id number] Rubi Lynch MT [address] [address] 01/07/2024 17:13:10 01/08/2024 09:00:50 Thoracic back pain 167764420 M54.6 [id number] J[address]AN [address] [address] 02/18/2024 17:22:40 02/19/2024 09:58:37 Chronic thoracic back pain 6570960207 75976 M54.6 [id number] Rubi Lynch [address] [address] 03/24/2024 17:14:13 03/25/2024 09:09:05 Pain of bilateral forearms 0122905202 5215510 M79.631 M79.925 [id number] Juanita Krishna MD [address] [address] 04/12/2024 17:06:52 04/13/2024 08:33:17 Mixed anxiety and depressive disorder 529669217 F41.8 Doing well on lexapro 15mg. She might try to decrease/q uit after she quits smokint Migraine 59801132 G43.90 9 Stable, continue imitrex prn Benign par oxysmal positional vertigo 696813327 H81.10 Longstandi ng problem - gave vestibular exercises and she will try Adult heal examination 859097598 Z00.00 She is well-inves jailyn in healthy lifestyle habitsVacc sejal UTDWWC UTD and new IUD after her recent ectopicDec lines flu shot today. Will consider another time Smoker 27309065 F17.200 Good plans to quit Impacted cerumen 9409295 6 H61.20 EAsily removed via lighted curette. F/u in 1 year, sooner if needed irwin if changes to SSRI or to headache/B PPV [id number] Rubi Lynch [address] [address] 04/21/2024 17:24:59 04/21/2024 18:15:07 Thoracic back pain 377975385 M54.[id number] [address] 06/01/2024 17:16:32 06/02/2024 09:05:13 Thoracic back pain 647621852 M54.6 [id number] Rubi Lynch [address] [address] 06/29/2024 17:22:03 06/29/2024 18:15:59 Chronic thoracic back pain 3394037844 93593 M54.6 Health Concerns Section Related Observation LastModified by Organization Detai ls LastModified Time None Recorded Concern Status LastModified by Organization Details LastModified Time None Recorded Advance Directives Directive None Recorded Payers Encounter Date Sequence Insurance Name Policy Number Policy Barton Covered Member ID Barton Member ID Guarantor Name 03/24/2024 1 [employer]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 [id number] Yassine Ortiz Kendell [id number] Yassine Angel JusticeMiguel Ángel 04/12/2024 1 [employer]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 Forearm pain in left arm. Pt. presents with recent:{{neck pain upper back pain* (R) shoulder pain (L) shoulder pain (R) elbow pain (L) elbow pain (R) wrist pain (L) wrist pain low back pain low back pain with sciatica (R) hip pain (L) hip pain (R) knee pain (L) knee pain (R) ankle pain (L) ankle pain (R) foot pain (L) foot pain}},{{neck pain upper back pain (R) shoulder pain (L) shoulder pain (R) elbow pain (L) elbow pain (R) wrist pain (L) wrist pain low back pain low back pain with sciatica (R) hip pain (L) hip pain (R) knee pain (L) knee pain (R) ankle pain (L) ankle pain (R) foot pain (L) foot pain forearm pain#}}, Duration:{{__ days __weeks __months __years*}} PresentBest over last 24 hoursWorst over last 24 hours Pain Level{{0 1 2 3 4* 5 6 7 8 9 10}}{{0 1 2 3 4* 5 6 7 8 9 10}}{{0 1 2 3 4* 5 6 7 8 9 10}} Rubi JHOAN Lynch [address], [place], [address], [place] - [facility] 03/25/2024 09:08:54 04/12/2024 text/html 33 yo female her e for physicalCurrent concerns include --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 Ectopic even though she'd had her IUD In place. Had this replaced and then will decide what to do after that. --Migraines - she never did much symptom tracking. Couldn't find an stanislav and hard to write down during her regular work day. Wonders if menses, weather changes, neck tension could be playing a role.Sumatriptan usually works well.Long h/o migraines, including familyh/o. CT done ots of mucle pain/tension in the neck - Rubi for massage, chiro closer to home. Doing home exercises. --Depression and anxiety - Decreased lexapro from 20mg to 15mg last spring, and this seems to be a good dose.It is helping with mood.Her baseline headaches and dizziness persist.Mood is better, less tearful. 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 Chronic wrist pain. Pt. presents with recent:{{neck pain upper back pain* (R) shoulder pain (L) shoulder pain (R) elbow pain (L) elbow pain (R) wrist pain (L) wrist pain low back pain low back pain with sciatica (R) hip pain (L) hip pain (R) knee pain (L) knee pain (R) ankle pain (L) ankle pain (R) foot pain (L) foot pain}},{{neck pain upper back pain (R) shoulder pain (L) shoulder pain (R) elbow pain (L) elbow pain (R) wrist pain (L) wrist pain low back pain low back pain with sciatica (R) hip pain (L) hip pain (R) knee pain (L) knee pain (R) ankle pain (L) ankle pain (R) foot pain (L) foot pain wrist pain#}}, Duration:{{__ days __weeks __months __years*}} PresentBest over last 24 hoursWorst over last 24 hours Pain Level{{0 1 2 3 4 5* 6 7 8 9 10}}{{0 1 2 3 4* 5 6 7 8 9 10}}{{0 1 2 3 4 5* 6 7 8 9 10}} Rubi Lynch, [place] [address], [facility] [place], [address], [place] - [facility] 04/21/2024 18:14:59 06/01/2024 text/html 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 Is sore from snowboarding. Pt. presents with recent:{{neck pain upper back pain* (R) shoulder pain (L) shoulder pain (R) elbow pain (L) elbow pain (R) wrist pain (L) wrist pain low back pain low back pain with sciatica (R) hip pain (L) hip pain (R) knee pain (L) knee pain (R) ankle pain (L) ankle pain (R) foot pain (L) foot pain}},{{neck pain upper back pain (R) shoulder pain (L) shoulder pain (R) elbow pain (L) elbow pain (R) wrist pain (L) wrist pain low back pain low back pain with sciatica (R) hip pain (L) hip pain (R) knee pain (L) knee pain (R) ankle pain (L) ankle pain (R) foot pain (L) foot pain wrist/forearms#}} ,{{neck pain upper back pain (R) shoulder pain (L) shoulder pain (R) elbow pain (L) elbow pain (R) wrist pain (L) wrist pain low back pain low back pain with sciatica (R) hip pain (L) hip pain (R) knee pain (L) knee pain (R) ankle pain (L) ankle pain (R) foot pain (L) foot pain legs#}},{{neck pain* upper back pain (R) shoulder pain (L) shoulder pain (R) elbow pain (L) elbow pain (R) wrist pain (L) wrist pain low back pain low back pain with sciatica (R) hip pain (L) hip pain (R) knee pain (L) knee pain (R) ankle pain (L) ankle pain (R) foot pain (L) foot pain}} Duration:{{__ days __weeks __months __years*}} PresentBest over last 24 hoursWorst over last 24 hours Pain Level{{0 1 2 3 4* 5 6 7 8 9 10}}{{0 1 2 3 4* 5 6 7 8 9 10}}{{0 1 2 3 4 5* 6 7 8 9 10}} Rubi Lynch, [address], [place], [address], [place] - [facility] 06/02/2024 09:05:04 06/29/2024 text/html Subjective: Chronic upper back/shoulder/wrist/fo rearm tension and pain. Pt. presents with recent: {{neck pain upper back pain* (R) shoulder pain (L) shoulder pain (R) elbow pain (L) elbow pain (R) wrist pain (L) wrist pain low back pain low back pain with sciatica (R) hip pain (L) hip pain (R) knee pain (L) knee pain (R) ankle pain (L) ankle pain (R) foot pain (L) foot pain}},{{forearm pain# neck pain upper back pain (R) shoulder pain (L) shoulder pain (R) elbow pain (L) elbow pain (R) wrist pain (L) wrist pain low back pain low back pain with sciatica (R) hip pain (L) hip pain (R) knee pain (L) knee pain (R) ankle pain (L) ankle pain (R) foot pain (L) foot pain}}, Duration: {{__ days __weeks __months __yea rs*}} PresentBest over last 24 hoursWorst over last 24 hours Pain Level{{0 1 2 3 4 5 6* 7 8 9 10}}{{0 1 2 3 4* 5 6 7 8 9 10}}{{0 1 2 3 4 5 6* 7 8 9 10}} [address], [address], [place], [address], [place] [facility] 06/29/2024 18:15:48 OBGyn Episode No OBEpisode recorded.
--- OUTSIDE RECORDS SUMMARY | 2024-07-26 19:32 | XMS_ITS | Clinical Summary ---
Author Organization [facility] Medical Office Building [address] Address [address] [place] [address] Care Team Providers Care Remedial Project Manager Name Role Phone Amelia Wyman MD Unavailable [phone] Amanda Krishna MD Primary Care Provider Allergies No known active allergies Medications SUMAtriptan [...] 05/15/2017 Assessment & Plan (05/15/2017 8:10 AM [facility]ER [facility]): Headaches are stable. Continue current treatment regimen. imitrex renewed Skin papules, generalized 05/15/2017 Assessment & Plan (05/15/2017 8:11 AM [facility]): Small skin tags, papules - reassurance given. No intervention needed Resolved Problems Problem Noted Date Diagnosed Date Resolved Date Depression 10/02/2013 05/15/2017 Overview (08/21/2016): DEPRESSIVE DISORDER NEC Encounters Date Type Department Care Team Description 05/06/2024 Orders Only [facility] [address] [place] [address] Unknown, Notinfile from Last 3 Months Immunizations Immunization Administration Dates Next Due Influenza, Quadrivalent, Spl it, Intramuscular 12/25/2015 Influenza, Unspecified 05/14/2017(Deferred: [place] Refused) Surgical History Surgery Date Site/Laterality Comments OTHER SURGICAL HISTORY Excision of extra tooth - age 8 INTRAUTERINE DEVICE INSERTION 05/19/2016 - 05/18/2017 Medical History Medical History Date Comments Headache Poor circulation Depression Migraines Family History Medical History Relation Name Comments Other Mother Brain tumor - b enign; Heart attack Mother's Brother 2 Myocardia l infarction; Cause of : Myocardial infarction Relation Name Status Comments Mother Mother's Brother 1 (Age 42) Mother's Brother 2 Social History Tobacco Use Types Packs/Day Years [...] on file Legal Sex Female 7:06 PM [facility] Gender Identity Not on file Sexual Orientation Straight 05/26/2019 1: 44 PM [facility] Obstetrics History Last Filed Vital Signs Vital Sign Reading Time Taken Comments Blood Pressure 102/60 04/21/2024 3:09 PM [facility] Pulse 67 04/21/2024 3:09 PM [facility] Temperature 36.9 C (98.4 F) 04/21/2024 3:09 PM [facility] Respiratory Rate 18 04/21/2024 3:09 PM [facility] Oxygen Saturation 99% 04/21/2024 3:09 PM [facility] Inhaled Oxygen Concentration - - Weight 72.6 kg (160 lb) 04/21/2024 3:09 PM [facility] Height 175.3 cm (5' 9 ) 04/21/2024 3:09 PM [facility] Body Mass Index 23.63 04/21/2024 3:09 PM [facility] Plan of Treatment Health Maintenance Due Date Last Done Comments Cervical Cancer Screening 1989 Hepatitis C Screening 1989 Varicella Vaccines (1 of 2 - 13+ 2-dose series) 2002 Hepatitis B Screening 10/21/2007 Depression Screening 06/24/2019 06/24/2018, 10/08/2017, 05/14/2017 Regular Well Visit/Exam 18-64 06/24/2019 06/24/2018 Covid-19 Vaccine ( season) 2024 01/29/2021, 01/29/2021, 01/08/2021, Additional history exists DTaP/Tdap/Td Vaccine (2 - Td or Tdap) 02/11/2033 02/11/2023 Influenza Vaccine Discontinued 02/11/2023, 12/25/2015 HPV Vaccines Aged Out No longer eligi ble based on patient's age to complete this topic Pneumococcal vaccine <65 Aged Out No longer eligible based on patient's age to complete this topic Procedures Procedure Name Priority Date/Time Associated Diagnosis Comments SURGICAL PATHOLOGY Routine 05/06/2024 5: 00 PM [facility] from Last 3 Months Results * Surgical pathology (05/06/2024 5:00 PM [facility]) Skin, shave biopsy 05/06/2024 5:00 PM [facility] 05/13/2024 9:01 AM [facility] HAND Narrative 05/14/2024 1:12 PM [facility] results best viewed via link to PDF [facility] [address] [place] [address], [address], [place] [address] [email or web address] Note to Patients: This report may contain [...] REPORTED: 05/14/2024 Submitting Physician Information: Jackie Hauser, [facility] [place] [facility], [address] [place] [address], DERMATOPATHOLOGY REPORT RESULTS DIAGNOSIS: SKIN, SUPERIOR THORACIC [...] cr/anc ICD-9 A; ZSD.808 Clerical Data A; 85022 The characteristics of special, immunohistochemical, and immunofluorescence stains and in-situ hybridization tests performed by the [facility] were deemed acceptable in ongoing engagement quality consultant measures and in compliance with regulations drawn from the Clinical Laboratory Improvement Act fk3728 (CLIA '88). Control reactions for all stains performed were deemed adequate and appropriate by a pathologist prior to evaluation of patient tissue. Some diagnoses were rendered with the assistance of laboratory-developed tests utilizing analyte-specific reagents; the performance characteristic of these tests were determined by [facility] and are not cleared or approved by the [place] Food an Drug administration. Laboratory developed test may only be performed in a facility that is certified by the [facility] as a high-complexity laboratory under CLIA '88. These tests are used for clinical purposes and are not investigational. us Notinfile Unknown LAB PATHOLOGY ORDERABLES Final Result from Last 3 Months Insurance [facility] Member Subscriber Plan / Payer (Ef fective 2016-Present) Name:Nallely Sandra Relation to Subscriber:Self Name:Nallely Sandra Payer ID:[id number] Type:Not on file Address: [facility] [address] [facility] Member Subscriber Plan / Payer (Ef fective 2022-Present) Name:Nallely Sandra Relation to Subscriber:Self Name:Miguel Ángel, Nallely Ortiz Payer ID:[id number] (NAIC) Type:[facility] HMO/PPO Address: [place] [phone] Care Teams Remedial Project Manager Relationship Specialty Start Date End Date Amanda Krishna MD [address] [place] [address] PCP - General Family Medicine 04/21/24 Amelia Wyman MD [employer] 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
[2024-07-26 19:43] LABS: Beta HCG Quantitative < 1.00 mIU/mL (0-6)
== END 2024-07-26 18:54 | disposition home or self-care (01) ==
LOC: CHSLAB 18:56
PROVIDERS: PCP Family Medicine; Visit Provider Obstetrics & Gynecology
DX: N91.2 Amenorrhea, unspecified (principal); Z87.59 Personal history of other complications of pregnancy, childbirth and the puerperium
CPT/HCPCS: 36415; 84702

== ENCOUNTER 2024-11-29 12:58 | Outpatient (CLI) | payer OTHER, SELFPAY ==
--- NOTE | ~2024-11-29 | MR_ITS ---
EXAMINATION: MR brain IAC wo/w con DATE: 11/29/2024 13:58 INDICATION: Dizziness and giddiness TECHNIQUE: Magnetic resonance imaging (MRI) of the brain and brainstem was performed without and with 13 mL Multihance intravenous contrast. Sequences included sagittal and axial T1-weighted FSE, axial diffusion-weighted FS EPI, axial T2*-weighted GRE, axial T2-weighted FLAIR Propeller, axial T2-weight ed Propeller, small yzffa-pw-pifq coronal FIESTA, small bvhxq-vf-fyxx coronal T1-weighted FSE, and sm all bcwaf-np-bzlc axial T1-weighted SPGR. Postcontrast sequences included axial T1-weighted FSE, smal l yqbal-vw-vzgm coronal T1-weighted FSE, and small oovtb-jk-yhjr axial T1-weighted SPGR. Apparent dif fusion coefficient (ADC) maps were created. COMPARISON: None. FINDINGS: There are no areas of restricted diffusion to suggest acute infarction. No intracranial hemorrhage or abnormal intracranial mass lesion. There are no intraparenchymal signal abnormalities seen on the ot her pulse sequences. The ventricles are symmetric and normal in size. Normal seventh/eighth cranial n erve complexes. No cerebellopontine angles masses. No evidence of mastoid or middle ear fluid. There are no abnormal extra-axial fluid collections. Flow voids are seen in the cerebral arteries on the T 2-weighted sequences consistent with their expected patency. Mild mucoperiosteal thickening the bilat eral ethmoid sinuses. Visualized orbits and soft tissues are unremarkable. There are no areas of abno rmal enhancement on the post contrast images. IMPRESSION: 1. Unremarkable MRI of the brain and internal auditory canals with normal brain and no etiology for r eported dizziness/giddiness. Reviewed, dictated and finalized at location A. IMPRESSION: 1. Unremarkable MRI of the brain and internal auditory canals with normal brain and no etiology for reported dizziness/giddiness.
== END 2024-11-29 12:59 | disposition home or self-care (01) ==
LOC: MICIMG 13:00
PROVIDERS: PCP Family Medicine; Visit Provider Family Medicine
DX: R42 Dizziness and giddiness (principal)
CPT/HCPCS: 70553; A9577